=== PATIENT | male | born 2000 | race Caucasian/White ===

== ENCOUNTER 2018-02-16 03:46 | Emergency (ER) | payer SELFPAY ==
[~2018-02-16] VITALS: Ht 188 cm; Wt 87.1 kg
[2018-02-16 04:01] VITALS: Ht 188 cm; Wt 87.1 kg
[2018-02-16 05:13] LABS: BASOPHIL % 0.8 % (0-2); PLATELET COUNT 225 x10^3mcL (130-400)
[2018-02-16 05:24] LABS: RED CELL DISTRIBUTION WIDTH 17.7 % (11.5-14.5)
[2018-02-16 05:49] LABS: CARBON DIOXIDE 25.9 mmol/L (21-32); CHLORIDE SERUM 108 mmol/L (98-107); CREATININE SERUM 0.9 mg/dL (0.7-1.3); FREE T4 1.06 ng/dL (0.76-1.46); GFR1 > 60 mL/min; GLUCOSE SERUM 110 mg/dL (74-106); POTASSIUM SERUM 3.6 mmol/L (3.5-5.1); SODIUM SERUM 143 mmol/L (136-145)
[2018-02-16 06:55] VITALS: BP 126/81
== END 2018-02-16 06:55 | disposition home or self-care (01) ==
LOC: ED 03:46
PROVIDERS: Emergency Medicine
DX: R07.89 Other chest pain (principal); R06.02 Shortness of breath
CPT/HCPCS: 36415; 84439; Q0092